=== PATIENT | female | born 1975 | race American Indian/Alaskan Native ===

== ENCOUNTER 2016-10-23 17:48 | Emergency (ER) | payer BC ==
--- NOTE | 2016-10-23 18:55 | XRay Report ---
FINAL REPORT EXAM: XR RIBS UNILAT 2V LT HISTORY: fall, rib pain TECHNIQUE: Left ribs 4 views PRIORS: None. FINDINGS: No rib fracture identified. No bony lesions seen. No evidence off pneumothorax or pleural effusion within the left vamshi thorax. Otherwise no acute findings. IMPRESSION: Negative rib series
[2016-10-23] MEDS ORDERED: MORPHINE IV ONE (21:47)
[2016-10-23] MEDS ORDERED: NACL 0.9% 1000 ML 1,000 ML IV ONE (21:47)
[2016-10-23] MEDS ORDERED: ZOFRAN IV ONE (21:47)
--- NOTE | 2016-10-23 22:12 | Emergency Department Report ---
<NEHA BUENO - Last Filed: 10/24/16 01:31> ED General Adult HPI - General Chief complaint: Fall Stated complaint: FELL OFF LADDER/SEVERE RIB PAIN/SOB Time Seen by Provider: 10/23/16 21:30 - Related Data Home Medications Medication Instructions Recorded Confirmed Last Taken Aspirin [Aspirin BABY CHEW TAB] 81 mg PO QDAY 09/20/15 09/20/15 1 Day Ago Previous Rx's Medication Instructions Recorded Last Taken Type Butalbit/Acetamin/Caff/Codeine 1 each PO Q8H PRN #20 capsule 01/18/15 2 Days Ago Rx [Fioricet/Codeine 06-789-67-30] Butalbit/Acetamin/Caff/Codeine 1 each PO Q6HR PRN #14 capsule 09/20/15 Unknown Rx [Fioricet/Codeine 20-144-40-30] LORazepam [Ativan] 0.5 mg PO BID PRN #10 tablet 09/20/15 Unknown Rx Topiramate [Topamax] 50 mg PO BID #20 tablet 09/20/15 Unknown Rx Triamter/Hctz 37.5-25 mg 1 tab PO QDAY #10 tablet 09/20/15 Unknown Rx [Maxzide-25] Zolpidem [Ambien] 10 mg PO QHS PRN #7 tablet 09/20/15 Unknown Rx amLODIPine [Norvasc] 10 mg PO QDAY #14 tablet 09/20/15 Unknown Rx Phenylephrine/Dm/Acetaminop/GG 20 ml PO Q4HR PRN #180 liquid 04/27/16 Unknown Rx [Mucinex Cmvp-Obr-Evjcfohzra Lq] traMADol [Ultram 50 MG tab] 50 mg PO Q6HR PRN #10 tablet 04/27/16 Unknown Rx Acetaminophen/Codeine [Tylenol 1 tab PO Q6H PRN #12 tab 10/24/16 Unknown Rx /Codeine # 3 tab] Naproxen [Naprosyn TAB] 500 mg PO BID PRN #20 tablet 10/24/16 Unknown Rx Allergies Allergy/AdvReac Type Severity Reaction Status Date / Time statins Allergy Rash Uncoded 04/27/16 03:04 ED Review of Systems ROS: Stated complaint: FELL OFF LADDER/SEVERE RIB PAIN/SOB Other details as noted in HPI ED Past Medical Hx - Medications Home Medications: Home Medications Medication Instructions Recorded Confirmed Last Taken Type Butalbit/Acetamin/Caff/Codeine 1 each PO Q8H PRN #20 capsule 01/18/15 09/20/15 2 Days Ago Rx [Fioricet/Codeine 43-146-19-30] Aspirin [Aspirin BABY CHEW TAB] 81 mg PO QDAY 09/20/15 09/20/15 1 Day Ago History Butalbit/Acetamin/Caff/Codeine 1 each PO Q6HR PRN #14 capsule 09/20/15 Unknown Rx [Fioricet/Codeine 65-146-33-30] LORazepam [Ativan] 0.5 mg PO BID PRN #10 tablet 09/20/15 Unknown Rx Topiramate [Topamax] 50 mg PO BID #20 tablet 09/20/15 Unknown Rx Triamter/Hctz 37.5-25 mg 1 tab PO QDAY #10 tablet 09/20/15 Unknown Rx [Maxzide-25] Zolpidem [Ambien] 10 mg PO QHS PRN #7 tablet 09/20/15 Unknown Rx amLODIPine [Norvasc] 10 mg PO QDAY #14 tablet 09/20/15 Unknown Rx Phenylephrine/Dm/Acetaminop/GG 20 ml PO Q4HR PRN #180 liquid 04/27/16 Unknown Rx [Mucinex Tocu-Avh-Qbhreqtrek Lq] traMADol [Ultram 50 MG tab] 50 mg PO Q6HR PRN #10 tablet 04/27/16 Unknown Rx Acetaminophen/Codeine [Tylenol 1 tab PO Q6H PRN #12 tab 10/24/16 Unknown Rx /Codeine # 3 tab] Naproxen [Naprosyn TAB] 500 mg PO BID PRN #20 tablet 10/24/16 Unknown Rx ED Course Vital Signs 10/23/16 10/23/16 10/23/16 17:54 22:23 22:53 Temperature 98.1 F Pulse Rate 86 Respiratory 16 20 20 Rate Blood Pressure 138/82 Blood Pressure [Left] O2 Sat by Pulse 100 Oximetry 10/24/16 02:02 Temperature 98.4 F Pulse Rate 82 Respiratory 20 Rate Blood Pressure Blood Pressure 127/78 [Left] O2 Sat by Pulse 99 Oximetry ED Medical Decision Making - Lab Data Result diagrams: 10/23/16 22:18 10/23/16 22:18 - Medical Decision Making A/P: Abdominal trauma, rule out intra-abdominal injury rule out rib fractures 1-x-rays show no rib fractures, CT of abdomen with contrast unremarkable 2-patient sustained contusions to anterior abdomen but no internal injury or rib fractures 3-Tylenol 3 and naproxen when necessary for pain 4-I advised patient to return to the ED if she experiences worsened abdominal pain beyond what she is present now any persistent nausea or vomiting or intractable nausea, any gross hematuria or rectal bleeding. Critical care attestation.: If time is entered above; I have spent that time in minutes in the direct care of this critically ill patient, excluding procedure time. ED Disposition Clinical Impression: Chest wall pain Fall Qualifiers: Encounter type: initial encounter Qualified Code(s): W19.XXXA - Unspecified fall, initial encounter Abdominal wall contusion Qualifiers: Encounter type: initial encounter Qualified Code(s): S30.1XXA - Contusion of abdominal wall, initial encounter Disposition: DISCHARGED TO HOME OR SELFCARE Is pt being admited?: No Does the pt Need Aspirin: No Condition: Stable Instructions: Chest Pain (ED), Contusion in Adults (ED) Prescriptions: Acetaminophen/Codeine [Tylenol /Codeine # 3 tab] 1 tab PO Q6H PRN #12 tab PRN Reason: Pain Naproxen [Naprosyn TAB] 500 mg PO BID PRN #20 tablet PRN Reason: Pain Referrals: SERGIO STAHL JR, MD [Staff Physician] - 3-5 Days Forms: Work/School Release Form(ED) Time of Disposition: 01:34 <JOSE JUAN GOMEZ M - Last Filed: 10/24/16 10:49> ED General Adult HPI - General Source: patient Mode of arrival: Ambulatory Limitations: No Limitations - History of Present Illness Initial comments: PT c/o L rib pain since fall off ladder at 0700. PT states she was 5 feet high on the ladder, cleaning a shower head, when the bucket of bleach water fell onto pt and pt fell from ladder, hitting her L side on frame of shower. PT denies loc. PT states she got up and ran to another shower to make sure she washed the bleach off. PT states she took an old RX of Ultram for the pain and when that did not help, she took Motrin. PT states the pain was still 02/26 so she got a ride up to the ED. MD Complaint: fall -: Sudden, hour(s) Time: 07:00 Location: chest Radiation: non-radiation Severity scale (0 -10): 9 Quality: stabbing, sharp, constant Consistency: constant Improves with: none Worsens with: movement, other (deep breath ) Associated Symptoms: denies other symptoms. denies: chest pain, nausea/vomiting , shortness of breath Treatments Prior to Arrival: NSAID ED Review of Systems Comment: All other systems reviewed and negative Constitutional: no symptoms reported Respiratory: denies: shortness of breath (but hurts to take a deep breath ) Cardiovascular: chest pain (L rib pain ) Gastrointestinal: denies: abdominal pain, nausea, vomiting Musculoskeletal: denies: back pain Skin: denies: change in color Neurological: denies: abnormal gait ED Past Medical Hx - Past Medical History Previous Medical History?: Yes Hx Hypertension: Yes Hx Headaches / Migraines: Yes Hx Psychiatric Treatment: Yes (anxiety) Additional medical history: TIAs x2 06/2015, 08/18/2015 - Surgical History Past Surgical History?: Yes Additional Surgical History: tubal ligation - Social History Smoking Status: Never Smoker Substance Use Type: None ED Physical Exam - General Limitations: No Limitations General appearance: alert, other (appears uncomfortable ) - Head Head exam: Present: atraumatic, normocephalic, normal inspection - Eye Eye exam: Present: normal appearance, PERRL, EOMI. Absent: conjunctival injection Pupils: Present: normal accommodation - ENT ENT exam: Present: normal exam, mucous membranes moist, normal external ear exam - Neck Neck exam: Present: normal inspection, full ROM. Absent: tenderness - Respiratory Respiratory exam: Present: normal lung sounds bilaterally, chest wall tenderness (L ant ribs ). Absent: respiratory distress, wheezes, rales, rhonchi - Cardiovascular Cardiovascular Exam: Present: regular rate, normal rhythm, normal heart sounds - GI/Abdominal GI/Abdominal exam: Present: soft, tenderness (LUQ ), guarding, normal bowel sounds, other (linear contusion from suprapubic area extending out to L hip ). Absent: rebound, rigid - Extremities Exam Extremities exam: Present: normal inspection, full ROM, normal capillary refill. Absent: tenderness, pedal edema - Back Exam Back exam: Present: normal inspection, full ROM. Absent: tenderness, CVA tenderness (R), CVA tenderness (L), muscle spasm, paraspinal tenderness, vertebral tenderness - Neurological Exam Neurological exam: Present: alert, oriented X3, CN II-XII intact, normal gait - Psychiatric Psychiatric exam: Present: normal affect, normal mood - Skin Skin exam: Present: warm, dry, ecchymosis ED Course - Reevaluation(s) Reevaluation #1: 10/23/16 22:15 PT aware of XR results. PT aware if her rib pain persists, she may need repeat XRs. PT aware of plan of care. PT has no questions at this time. Reevaluation #2: 10/24/16 00:[address] pending. PT's care handed off to OSIRIS Solomon - Pulse Oximetry Interpretation Digit-Finger Initial Pulse Oximetry Readin Actions Taken: none ED Medical Decision Making - Lab Data Result diagrams: 10/23/16 22:18 10/23/16 22:18 - Radiology Data Radiology results: report reviewed XR L ribs, nap - Differential Diagnosis fracture, spleenic injury, intraabd process, ED Disposition Is pt being admited?: No Does the pt Need Aspirin: No
[2016-10-23 22:39] LABS: Basophils % (Auto) 0.6 % (0.0-1.8); Hematocrit 38.5 % (30.3-42.9); Hemoglobin 12.5 gm/dl (10.1-14.3); Mean Corpuscular HGB Conc 32 % (30-34); Mean Corpuscular Hemoglobin 29 pg (28-32); Mean Corpuscular Volume 90 fl (79-97); Platelet Count 268 K/mm3 (140-440); Red Blood Count 4.27 M/mm3 (3.65-5.03); Red Cell Distribution Width 14.2 % (13.2-15.2); White Blood Count 11.3 K/mm3 (4.5-11.0)
[2016-10-23 22:49] LABS: INR 0.87 (0.87-1.13)
[2016-10-23 22:50] LABS: Partial Thromboplastin Time 26.3 Sec. (24.2-36.6)
[2016-10-23 22:52] LABS: Bilirubin,Urine NEG (Negative); Blood,Urine NEG (Negative); Ketones,Urine TR mg/dL (Negative); Leukocyte Esterase,Urine TR (Negative); Mucus,Urine FEW /HPF; Nitrite,Urine NEG (Negative); Protein,Urine <15 mg/dL mg/dL (Negative); Urobilinogen,Urine < 2.0 mg/dL (<2.0)
[2016-10-23 22:57] LABS: Anion Gap 20 mmol/L; Blood Urea Nitrogen 9 mg/dL (7-17); Calcium 9.3 mg/dL (8.4-10.2); Carbon Dioxide 28 mmol/L (22-30); Chloride 101.4 mmol/L (98-107); Glucose 94 mg/dL (65-100); Potassium 3.4 mmol/L (3.6-5.0); Sodium 146 mmol/L (137-145)
--- NOTE | 2016-10-24 01:24 | Cat Scan Report ---
FINAL REPORT PROCEDURE: CT ABDOMEN PELVIS W CON TECHNIQUE: Computerized axial tomography of the abdomen and pelvis was performed after the IV injection of iodinated nonionic contrast. HISTORY: fall, abd contusion and tenderness COMPARISON: No prior studies are available for comparison. FINDINGS: Visualized lower thorax: No significant abnormality. Liver: Normal size and attenuation. Spleen: Normal size and attenuation. Gallbladder and biliary system: A stone is identified gallbladder lumen. No dilatation of biliary ductal system.. Pancreas: Normal. Adrenals: Normal. Kidneys: Normal. GI tract: There is some thickening of the gastric wall involving the pylorus of the stomach. Gastritis is possible. The small bowel has a normal caliber without obstruction. No ileus or enteritis. The cecum, appendix and colon are normal.. Lymph nodes and mesentery: Normal. Vasculature: Normal. Bladder: Normal. Reproductive organs: No pelvic masses.. Peritoneum: No free fluid. Musculoskeletal structures: No significant abnormality. Other: None. IMPRESSION: There is no evidence of intestinal or urinary tract obstruction. No ileus or enteritis. The appendix is normal. Thickening of the gastric wall near the pylorus may represent gastritis. Cholelithiasis is suspected.
[2016-10-24 02:03] VITALS: BP 127/78
== END 2016-10-24 02:00 | disposition home or self-care (01) ==
LOC: ED 17:48
DX: S30.1XXA Contusion of abdominal wall, initial encounter (principal); R07.89 Other chest pain; I10 Essential (primary) hypertension; G43.909 Migraine, unspecified, not intractable, without status migrainosus; F41.9 Anxiety disorder, unspecified; Z79.82 Long term (current) use of aspirin; Z86.73 Personal history of transient ischemic attack (TIA), and cerebral infarction without residual deficits; Z88.8 Allergy status to other drugs, medicaments and biological substances; W11.XXXA Fall on and from ladder, initial encounter; Y93.89 Activity, other specified; Y99.9 Unspecified external cause status; Y92.89 Other specified places as the place of occurrence of the external cause
CPT/HCPCS: 36415; 71100; 74177; 80048; 81001; 84702; 85025; 85610; 85730; 96361; 96374; 96375; 99284; J2270; J2405; J7030; Q9967